=== PATIENT | female | born 2005 | race Caucasian/White ===

== ENCOUNTER 2023-05-11 17:06 | Emergency (ER) | payer MEDICAID ==
[~2023-05-11] VITALS: Ht 157.5 cm; Wt 55.9 kg
[2023-05-11 17:51] VITALS: BP 134/92; PULSE 102; RESP 18; TEMP 98.1; O2SAT 99
[2023-05-11] MEDS ORDERED: ALBU6.7H15 INH (20:05)
[2023-05-11] MEDS ORDERED: [UNRECOGNIZED DRUG - CODE] PO (20:05)
[2023-05-11] MEDS ORDERED: P20 MT (20:05)
== END 2023-05-11 20:35 | disposition home or self-care (01) ==
LOC: ER 17:06
DX: J20.9 Acute bronchitis, unspecified (principal); Z98.890 Other specified postprocedural states
CPT/HCPCS: 71045; 99283